=== PATIENT | male | born 2000 | race Asian ===

== ENCOUNTER 2022-11-13 12:24 | Emergency (ER) | payer OTHER, SELFPAY ==
[2022-11-13 13:30] VITALS: BP 113/71; PULSE 93; RESP 20; TEMP 36.7; O2SAT 99; BMI 25.7
--- NOTE | 2022-11-13 13:30 | ED_ITS ---
HPI - General Adult General Chief complaint: General Medical Stated complaint: quest std Time Seen by Provider: 11/13/22 17:11 Source: patient Mode of arrival: ambulatory Limitations: no limitations History of Present Illness HPI narrative: Patient is a 22 year old assigned male at with no reported medical history presenting to the emergency department today with STD exposure. Patient states that he recently had a sexual encounter with an individual who was recently exposed to syphilis and chlamydia. Patient denies any dizziness, lightheadedness, abdominal pain, nausea, vomiting, fever, chills, blurry vision, double vision, loss of vision, chest pain, difficulty breathing, shortness of breath, back pain, night sweats, pain with urination, increased urinary frequency, increased urinary urgency, blood in his urine or stool, syncope or a near syncopal episode, recent trauma or falls, bowel incontinence, bladder incontinence, bowel retention, bladder retention, or any other complaints at this time. Relieving factors: none Exacerbating factors: none Associated symptoms: denies other symptoms Treatments prior to arrival: none Related Data Allergies Allergy/AdvReac Type Severity Reaction Status Date / Time No Known Allergies Allergy Verified 11/13/22 13:31 Review of Systems Constitutional: Constitutional: Reports no additional constitutional complaints, Denies chills, Denies fever(s) and Denies night sweats Eyes: Eyes: Reports no additional eye complaints, Denies blurry vision, Denies change in vision, Denies diplopia, Denies eye discharge, Denies loss of vision and Denies eye pain ENT: Denies dizziness Cardiovascular: Cardiovascular: Reports no additional cardiovascular complaints, Denies chest pain, Denies lightheadedness, Denies Loss of Consciousness and Denies dyspnea Respiratory: Respiratory: Reports no additional respiratory complaints and Denies dyspnea Gastrointestinal: Gastrointestinal: Reports no additional gastrointestinal complaints, Denies abdominal pain, Denies melena, Denies hematochezia, Denies change in bowel habits and Denies change in stool character Genitourinary: Genitourinary: Reports no additional male genitourinary complaints, Denies hematuria, Denies oliguria, Denies difficulty urinating, Denies dysuria, Denies urinary frequency, Denies urinary hesitancy, Denies urinary incontinence and Denies urinary urgency Musculoskeletal: Musculoskeletal: Reports no additional musculoskeletal complaints, Denies numbness and Denies tingling Neurologic: Denies dizziness, Denies loss of vision, Denies numbness and Denie s tingling Psychiatric: Psychiatric: Reports no additional psychiatric complaints Endocrine: Endocrine: Reports no additional endocrine complaints Hematologic/Lymphatic: Hematologic/Lymphatic: Reports no additional hematologic/lymphatic complaints Allergic/Immunologic: Allergic/Immunologic: Reports no additional allergic/immunologic complaints PMFSH Past Medical History Attestation statement: The following information was validated with the patient. Source: old records reviewed and nursing notes reviewed Social History Social History Advance Directives: No Advance Directives Information Provided: No Physical Exam ED Vital Signs: Vital Signs - 24 hr 11/13/22 13:30 Temperature 98.1 F Pulse Rate 93 Respiratory Rate 20 Blood Pressure 113/71 Pulse Oximetry 99 Oxygen Delivery Method Room Air BMI result Body Mass Index 25.7 Const General: cooperative, no acute distress, alert and awake Nutritional Appearance: well nourished Orientation/consciousness: patient oriented x3 Limitations: no limitations HENMT Head: Yes normal to inspection and Yes atraumatic Ears: hearing grossly normal bilaterally and external ears normal General nose exam: Normal external nose present, no nasal discharge noted and no epistaxis Face and sinus: Yes normal facial exam, No abrasion and No laceration Mouth: Normal oral and palatal mucosa present, no drooling and no muffled voice Eyes General: appearance normal, both eyes and all related structures Periorbital: periorbital findings normal Eyelids: Yes eyelids normal Conjunctivae: conjunctivae normal Pupils: Equal, round and reactive pupils present EOM: EOMs intact bilaterally Neck Neck: Yes normal visual inspection, Yes full ROM and Yes no lymphadenopathy Chest Chest palpation & inspection: normal inspection of the chest Resp Effort & Inspection: normal respiratory effort and able to speak in complete sentences GI Inspection: Yes normal to inspection Neuro General: patient oriented x3 and moves all extremities Cranial nerves: Yes Equal, round and reactive pupils present Cognition (Neuro): normal cognition Motor exam (neuro): 5/5 motor strength present throughout Sensory Exam: Normal double simultaneous stimulation for sensation Coordination: [id number] test normal Extrem General: Yes normal to inspection, Yes full ROM and Yes capillary refill normal Psych Appearance: grossly normal Mental Status: mental status grossly normal Affect: normal affect Attitude: cooperative Thought process: Normal thought process present Thought content: Normal thought content present Insight: Good insight present (Psych) Course Course Course Narrative: RME performed by Gela Aguilar PA-C. Patient is a 22 year old assigned male at presenting to the emergency department with Syphillis and Chlamydia exposure. Labs ordered. Patient placed back in the waiting room pending room availability and results. Medical Decision Making Medical Decision Making MDM Narrative: Patient is a 22 year old assigned male at with no reported medical history presenting to the emergency department today with STD exposure. Patient's limited physical exam performed in triage was unremarkable. Patient provided all appropriate urine and blood samples however the patient left before receiving results or any treatment. Patient left the department before myself or any of the other emergency department providers could review any physical exam findings or discuss need or lack there of for further testing. Patient left the department before receiving any prophylactic treatment. Differential Diagnosis Differential Diagnoses: The differential diagnosis associated with the presentation includes STD exposure. Discharge Plan Discharge Clinical Impression: Exposure to STD Patient Disposition: Left W/O Completing Treatment Interventions: ED Discharge Assessment Last Done: 11/13/22 17:51 Discharge Date/Time: 11/13/22 17:30
[2022-11-14 03:40] LABS: Syphilis Screen Nonreactive (Nonreactive)
[2022-11-14 05:19] LABS: HIV AB/AG Nonreactive (Nonreactive); HIV Num 1 0.06 S/CO (0.00-0.99)
== END 2022-11-13 17:30 | disposition left against medical advice (07) ==
PROVIDERS: Physician Assistant Medical; Emergency Provider Emergency Medicine
DX: Z20.2 Contact with and (suspected) exposure to infections with a predominantly sexual mode of transmission (principal)
CPT/HCPCS: 0353U; 36415; 86780; 87389; 99282; 99283

== ENCOUNTER 2022-11-15 00:01 | Emergency (ER) | payer OTHER, SELFPAY ==
[2022-11-15 00:12] VITALS: BP 115/76; PULSE 77; RESP 16; TEMP 36.5; O2SAT 99; BMI 26.0
--- NOTE | 2022-11-15 00:22 | ED.GENADULT ---
HPI - General Adult General Chief complaint: General Medical Stated complaint: STD check Time Seen by Provider: 11/15/22 00:22 Related Data Previous Rx's Medication Instructions Recorded doxycycline hyclate 100 mg tablet 100 mg PO Q12H 7 days #14 tabs 11/15/22 metronidazole 500 mg tablet 2,000 mg (4 x 500 mg) PO ONCE 1 11/15/22 day #4 tabs Allergies Allergy/AdvReac Type Severity Reaction Status Date / Time No Known Allergies Allergy Verified 11/13/22 13:31 [facility] Social History Social History Advance Directives: No Advance Directives Information Provided: No Physical Exam ED Vital Signs: Vital Signs - 24 hr 11/15/22 00:12 Temperature 97.7 F Pulse Rate 77 Respiratory Rate 16 Blood Pressure 115/76 Pulse Oximetry 99 Oxygen Delivery Method Room Air BMI result Body Mass Index 26.0 Medications Administered Discontinued Medications Generic Name Dose Route Start Last Admin Trade Name Freq PRN Reason Stop Dose Admin Ceftriaxone Sodium 500 mg/ 0 mg 11/15/22 01:01 11/15/22 01:10 Lidocaine HCl 1 ml IM 11/15/22 01:02 1 kit ONCE ONE Administration Discharge Plan Discharge Clinical Impression: Encounter for assessment of STD exposure Patient Disposition: Home, Self-Care Instructions: Sexually Transmitted Diseases (ED) Additional Instructions: Your HIV test and syphilis screening test were negative on 11/13/2022. This is reassuring however it sometimes takes 2-4 weeks that developed antibiotic against the HIV virus and the syphilis bacteria so you will need repeat HIV and syphilis testing to determine whether or not you need treatment for these 2 diseases. You received ceftriaxone 500 mg mixed with lidocaine intramuscularly for gonorrhea. I am prescribing doxycycline 100 mg every 12 hours for 7 days, this will treat chlamydia I am prescribing Flagyl (metronidazole) 2 g (this will either be 4 pills or 8 pills) taken all at once. This will treat Trichomonas Follow-up with [facility], [facility] or an infectious disease specialist for re-evaluation and retesting for HIV and syphilis. The treatment for syphilis required a shot of penicillin intermuscular every week for 2-3 weeks, therefore we usually do not give penicillin prophylactically unless you have a documented syphilis infection. When you follow-up with the STD clinic or the infectious disease specialist you should discuss Post Exposure Prophylaxis (PEP) to help prevent HIV disease. Prescriptions: New metronidazole 500 mg tablet 2,000 mg PO ONCE 1 Days Qty: 4 0RF doxycycline hyclate 100 mg tablet 100 mg PO Q12H 7 Days Qty: 14 0RF
[2022-11-15] MEDS: cefTRIAXone sodium 500 MG, Lidocaine HCl 1 % MPF 1 ML IM (01:10)
--- NOTE | 2022-11-15 01:14 | PC.NURSE ---
Pt a&o, no sob or chest pain, provider into discuss plan of care. Medicated per Mar. Will continue to monitor.
--- NOTE | 2022-11-15 01:43 | PC.NURSE ---
Reviewed discharge instructions with pt. pt verbalized understanding.
--- NOTE | 2022-11-16 02:31 | ED_ITS ---
HPI - General Adult General Chief complaint: General Medical Stated complaint: STD check Time Seen by Provider: 11/15/22 00:22 Source: patient Limitations: no limitations History of Present Illness HPI narrative: 22-year-old male who presents emergency department for evaluation STD exposure. Patient came to the emergency department on 11/13/2022 however due to the long wait, he left and came back today to be re-evaluated. The patient states that he performed oral sex on a man who is HIV positive. The HIV positive man is also here in the emergency department. The HIV positive man states that he has a 0 viral load and his CD4 count is greater than 1100. He states that he was informed that he may have been exposed to chlamydia and syphilis. Therefore HIV positive man and the patient came to emergency department for evaluation of STDs.. They HIV positive man states that he has had syphilis in the past and was treated for this condition. The patient has no symptoms. He states he does have sex with other men and does not use protection or PEP. Related Data Previous Rx's Medication Instructions Recorded doxycycline hyclate 100 mg tablet 100 mg PO Q12H 7 days #14 tabs 11/15/22 metronidazole 500 mg tablet 2,000 mg (4 x 500 mg) PO ONCE 1 11/15/22 day #4 tabs Allergies Allergy/AdvReac Type Severity Reaction Status Date / Time No Known Allergies Allergy Verified 11/13/22 13:31 Review of Systems Review of Systems: Yes all other systems are reviewed and are negative [facility] Past Medical History [facility] Narrative: Past medical history: None Social History Social History Smoked in Last 30 Days: No Use of substances other than those prescribed or required for medical reasons: No Advance Directives: No Advance Directives Information Provided: No Physical Exam ED Vital Signs: BMI result Body Mass Index 26.0 Exam: General: Awake, alert in no distress Head: Normocephalic, atraumatic EENT: PERRL, Lids normal, sclera normal, conjunctiva normal, nose normal , ears normal, throat without erythema or exudates Neck: Supple, no adenopathy, trachea midline and nontender Skin: no rashes, no lesion, normal color and warmth Psych: Pleasant, cooperative Medications Administered Discontinued Medications Generic Name Dose Route Start Last Admin Trade Name Freq PRN Reason Stop Dose Admin Ceftriaxone Sodium 500 mg/ 0 mg 11/15/22 01:01 11/15/22 01:10 Lidocaine HCl 1 ml IM 11/15/22 01:02 1 kit ONCE ONE Administration Medical Decision Making Medical Decision Making [facility] Narrative: 22-year-old male who presents emergency department for evaluation of STD exposure, he performed oral sex on a another man who is a patient here in the emergency department is HIV positive and was informed that he may have been exposed to chlamydia and syphilis. The patient is asymptomatic. His oral exam was unremarkable. He has no symptoms of pharyngitis. At the patient's previous visit he was tested for syphilis and HIV both screening test for nonreactive. I did tell the patient that it is good that his baseline tests are negative however he will need repeat syphilis and HIV tests in 2-4 weeks to determine if he has these infections from his recent exposure. The patient was treated prophylactically for gonorrhea with ceftriaxone 500 mg with lidocaine IM, for chlamydia with a prescription for doxycycline 100 mg q.12 hours x7 days and for Trichomonas with a prescription for Flagyl 2 g x1 dose. The [facility] or he states that he can follow-up with his friend's infectious disease doctor. Differential Diagnosis Differential Diagnoses: The differential diagnosis associated with the presentation includes Differential diagnosis includes was not limited to HIV disease, syphilis, gonorrhea, chlamydia, Trichomonas Prescription Management I considered prescription management with: Antibiotic Discharge Plan Discharge Clinical Impression: Encounter for assessment of STD exposure Patient Disposition: Home, Self-Care Instructions: Sexually Transmitted Diseases (ED) Additional Instructions: Your HIV test and syphilis screening test were negative on 11/13/2022. This is reassuring however it sometimes takes 2-4 weeks that developed antibiotic against the HIV virus and the syphilis bacteria so you will need repeat HIV and syphilis testing to determine whether or not you need treatment for these 2 diseases. You received ceftriaxone 500 mg mixed with lidocaine intramuscularly for gonorrhea. I am prescribing doxycycline 100 mg every 12 hours for 7 days, this will treat chlamydia I am prescribing Flagyl (metronidazole) 2 g (this will either be 4 pills or 8 pills) taken all at once. This will treat Trichomonas Follow-up with [facility], [facility] or an infectious disease specialist for re-evaluation and retesting for HIV and syphilis. The treatment for syphilis required a shot of penicillin intermuscular every week for 2-3 weeks, therefore we usually do not give penicillin prophylactically unless you have a documented syphilis infection. When you follow-up with the STD clinic or the infectious disease specialist you should discuss Post Exposure Prophylaxis (PEP) to help prevent HIV disease. Prescriptions: New metronidazole 500 mg tablet 2,000 mg PO ONCE 1 Days Qty: 4 0RF doxycycline hyclate 100 mg tablet 100 mg PO Q12H 7 Days Qty: 14 0RF Interventions: ED Discharge Assessment Last Done: 11/15/22 01:44 Discharge Date/Time: 11/15/22 01:46
== END 2022-11-15 01:46 | disposition home or self-care (01) ==
PROVIDERS: Emergency Provider Emergency Medicine Emergency Medical Services
DX: Z20.2 Contact with and (suspected) exposure to infections with a predominantly sexual mode of transmission (principal)
CPT/HCPCS: 96372; 99284; J0696